=== PATIENT | female | born 1995 | race Caucasian/White ===

== ENCOUNTER → 2018-11-05 13:24 | Outpatient (CLI) | payer MEDICAID, SELFPAY ==
[2018-11-05 16:32] LABS: Chlamydia Trachomatis by PCR Negative (Negative); Neisserai gonorrhoeae by PCR Negative (Negative); Probe Check PASS; Sample Adequacy Control PASS; Specimen Processing Control PASS
[2018-11-07 14:40] LABS: HPV Reflexed? NOT INDICATED
== END ==
PROVIDERS: Visit Provider Obstetrics & Gynecology
DX: Z32.01 Encounter for pregnancy test, result positive (principal); Z12.4 Encounter for screening for malignant neoplasm of cervix; Z11.3 Encounter for screening for infections with a predominantly sexual mode of transmission
CPT/HCPCS: 87491; 87591; 87624; 88175; G0145

== ENCOUNTER → 2018-12-04 11:31 | Outpatient (CLI) | payer MEDICAID, SELFPAY ==
[2015-01-27 10:56] VITALS: BMI 27.6
[2018-12-04 13:39] LABS: Color, Urine Yellow (Yellow); Glucose, Dipstick Normal (Normal); Ketone-Dipstick Negative (Negative); Leukocyte Esterase-Dipstick 25 /ul (Negative); Nitrite-Dipstick Negative (Negative); Occult Blood-Urine Negative /ul (Negative); Protein-Dipstick Negative (Negative); Specific Gravity, Urine 1.025 (1.002-1.030); Urine Bilirubin Dipstick Negative (Negative); Urine Clarity Sl. Cloudy (Clear); Urine Urobilinogen Normal (Normal)
[2018-12-04 13:49] LABS: COTININE Drug Screen Positive (<200 ng/mL)
[2018-12-04 13:59] LABS: Absolute Neutrophil Count 6.2 X10^3/uL (2.0-7.7); Basophil# 0.01 X10^3/uL; Basophil% 0.1 % (0-1); Eosinophil# 0.11 X10^3/uL; Eosinophils% 1.2 % (0-5); Hematocrit 36.9 % (37-47); Hemoglobin 12.4 g/dl (12.0-15.0); Lymphocyte % 21.6 % (19-41); Mean Corp Hgb Conc 33.6 g/gl (32-36); Mean Corpuscular Hgb 29.3 pg (27.0-32.0); Mean Corpuscular Volume 87.2 fL (81-99); Mean Platelet Vol. 10.4 fl (6.2-12.0); Monocyte# 0.51 X10^3/uL; Monocyte% 5.8 % (0-10); Neutrophil # 6.24 X10^3/uL (2.7-7.7); Neutrophil % 70.8 % (47-70); Platelet Count 282 K/mm3 (150-450); RBC Distribution Width CV 14.4 % (11.6-14.6); RBC Distribution Width SD 44.6 fl (35.1-43.9); Red Blood Count 4.23 M/mm3 (4.2-5.4); White Blood Count 8.8 K/mm3 (4.4-11.0)
[2018-12-04 14:01] LABS: Thyroid Stim Hormone (TSH) 0.78 uIU/mL (0.358-3.74)
[2018-12-04 14:02] LABS: Amphetamine Urine VISTA NEGATIVE (<1000 ng/mL); Barbiturate Urine VISTA NEGATIVE (< 200 ng/mL); Benzodiazepine Urine VISTA NEGATIVE (< 200 ng/mL); Cocaine Urine VISTA NEGATIVE (< 300 ng/mL); Ecstacy Urine VISTA NEGATIVE (< 500 ng/mL); Methadone Urine VISTA NEGATIVE (< 300 ng/mL); PCP Urine VISTA NEGATIVE (< 25 ng/mL); THC Urine VISTA NEGATIVE (< 50 ng/mL); Vista UDS pH Range 6
[2018-12-04 14:07] LABS: POSITIVE COUNT NO; POSITIVE DIFFERENTIAL NO; POSITIVE MORPHOLOGY NO
[2018-12-04 14:48] LABS: HIV - WCH Non-Reactive (Nonreactive); Rubella IgG 67.2 IU/mL; Vitamin D,25 Hydroxy 10.2 ng/mL (29.95-100.01)
[2018-12-05 11:27] LABS: HEPATITIS B SURFACE AG Negative (Negative); Hep C Antibodies <0.1 s/co ratio (0.0-0.9)
[2018-12-07 04:55] LABS: Prenatal RPR NONREACTIVE (NONREACTIVE)
== END ==
PROVIDERS: Visit Provider Obstetrics & Gynecology
DX: Z34.82 Encounter for supervision of other normal pregnancy, second trimester (principal)
CPT/HCPCS: 36415; 80307; 81002; 82306; 84443; 85025; 86703; 86762; 86803; 87340

== ENCOUNTER → 2019-03-11 16:04 | Outpatient (CLI) | payer MEDICAID, SELFPAY ==
[2015-01-27 10:56] VITALS: BMI 27.6
[2019-03-11 18:02] LABS: Hematocrit 33.7 % (37-47); Hemoglobin 11.3 g/dl (12.0-15.0); Mean Corp Hgb Conc 33.5 g/gl (32-36); Mean Corpuscular Hgb 29.1 pg (27.0-32.0); Mean Corpuscular Volume 86.9 fL (81-99); Mean Platelet Vol. 11.2 fl (6.2-12.0); Platelet Count 252 K/mm3 (150-450); RBC Distribution Width CV 13.8 % (11.6-14.6); RBC Distribution Width SD 42.6 fl (35.1-43.9); Red Blood Count 3.88 M/mm3 (4.2-5.4); White Blood Count 7.9 K/mm3 (4.4-11.0)
[2019-03-11 18:06] LABS: Glucose Challenge Gest 1H 50g 129 mg/dL (70-140)
[2019-03-11 18:28] LABS: Scan Indicated on CBC? Y/N NO
== END ==
PROVIDERS: Visit Provider Obstetrics & Gynecology
DX: Z34.83 Encounter for supervision of other normal pregnancy, third trimester (principal)
CPT/HCPCS: 36415; 82950; 85027

== ENCOUNTER → 2019-05-06 17:22 | Outpatient (CLI) | payer MEDICAID, SELFPAY ==
[2015-01-27 10:56] VITALS: BMI 27.6
== END ==
PROVIDERS: Referring Provider Obstetrics & Gynecology; Visit Provider Obstetrics & Gynecology
DX: Z36.85 Encounter for antenatal screening for Streptococcus B (principal)
CPT/HCPCS: 87081

== ENCOUNTER 2019-05-24 09:40 | Outpatient (CLI) | payer MEDICAID, SELFPAY ==
[2015-01-27 10:56] VITALS: BMI 27.6
[2019-05-24 10:24] VITALS: BMI 30.2
[2019-05-24 10:52] LABS: ROM Internal Control Test YES-OK TO RESULT pt. (Internal QC); ROM Patient Test Negative (Negative); Record Kit Lot#, ROM+ J8255
--- NOTE | 2019-06-03 07:57 | OB.TRI.NOTE ---
History of Present Illness Date of Service: 05/24/19 Reason For Visit: R/O RUPTURE Date of Service: 05/24/19 Final DANIELE: 05/27/19 Final DANIELE Source: US <20 weeks Gestational age: 41 Weeks and 0 Days History of Present Illness: This is a late entry for 05/24/2019 at 1150 Spoke with Sofya CASTELLON in office re: patient in L&D, c/o LOF; per Susie RN in in L&D, ROM-plus negative, cervix 3/60/-3; pt is not feeling contractions NST reactive with FHR baseline 135 to 140 bpm with moderate variability and accels, no decels; uterine contraction pattern irritable with occasional contractions. AVSS Allergies No Known Drug Allergies Allergy (Verified 05/27/19 11:42) Unknown NO KNOWN ALLERGIES Laboratory Studies: Laboratory Tests 05/24/19 Range/Units 10:15 Vag Amniotic Fld Detect Negative (Negative) NST - FHR Rate Baby A Baseline: 135 Variability:: Moderate Accelerations:: 15 x 15 Decelerations:: None NST Reactive:: Yes FHR Category:: Category I Impression/Plan Impression: 23 yo IUP at 39w4d gestation Negative for SROM Cat 1 FHTs Not in labor Plan: DC home with labor precautions, FM counts, increase fluids
== END 2019-05-24 11:40 | disposition home or self-care (01) ==
LOC: WPOUT 10:22 → WP 10:22
PROVIDERS: Referring Provider Advanced Practice Midwife; Visit Provider Advanced Practice Midwife
DX: O26.893 Other specified pregnancy related conditions, third trimester (principal); Z3A.39 39 weeks gestation of pregnancy; R69 Illness, unspecified
CPT/HCPCS: 59025; 59050; 84112; 99218; G0378

== ENCOUNTER 2019-05-27 10:50 | Inpatient (IN) | payer MEDICAID, SELFPAY ==
[2019-05-27] MEDS: Lactated Ringers 1,000 ML 50 ML IV (11:40)
[2019-05-27 11:41] VITALS: BMI 30.2
[2019-05-27 12:18] LABS: Absolute Lymphocyte Count 1.59 X10^3/uL (0.83-4.51); Basophil# 0.03 X10^3/uL; Basophil% 0.3 % (0-1); Eosinophil# 0.04 X10^3/uL; Eosinophils% 0.4 % (0-5); Hematocrit 35.8 % (37-47); Hemoglobin 11.9 g/dL (12.0-15.0); Lymphocyte # 1.59 X10^3/ul (4.0); Lymphocyte % 17.4 % (19-41); Mean Corp Hgb Conc 33.2 g/dL (32-36); Mean Corpuscular Volume 87.1 fL (81-99); Mean Platelet Vol. 11.1 fl (6.2-12.0); Monocyte# 0.47 X10^3/uL; Monocyte% 5.1 % (0-10); NRBC Flagged by Analyzer 0 % (0-5); Neutrophil # 6.97 X10^3/uL (2.7-7.7); Neutrophil % 76.3 % (47-70); Platelet Count 250 K/mm3 (150-450); RBC Distribution Width CV 14.7 % (11.6-14.6); RBC Distribution Width SD 47.1 fl (35.1-43.9); Red Blood Count 4.11 M/mm3 (4.2-5.4); White Blood Count 9.2 K/mm3 (4.4-11.0)
--- NOTE | 2019-05-27 12:55 | PCM.HP.BLA ---
History and Physical Date of Admission: 05[place]27/19 [facility] [place] PHYSICAL (05/27/2019) Name: CATE LUIS History of This : This is a 23-year-old 4 para 3 who presents in active labor at 40 weeks gestation. care has been uneventful except the patient is a smoker and has been advised to quit. OB Physician: YVONNE Highmore's Physician: Kajal Pickering ...................................................................... : 1995 Age: 23 Address: [address] [place] [address] Phone: H) [phone] Insurance Carrier: [facility] [id number] Emergency Contact: CANDICE FERNANDEZ [phone] ...................................................................... Final DANIELE: 05/27/19 By Ultrasound: 11 weeks 1 day PARITY: (G-Total Pregnancies P-Fullterm,Premature,Induced AB,Spont AB, Ectopics, Multiple,Living) DANIELE CONFIRMATION: By LMP: 08/09/18 By First Ultrasound Exam: 05/27/19 Final DANIELE: 05/27/19 BLOOD TYPE: Scanned 37 AFP: 1 HR P GBS: Group B Beta Streptococcus is not isolated. Original Ordering Provider: REJI STOVER Original Ordering Provider: Eduarda Khan MEET Culture Group B Beta Streptococcus is not isolated. Rublla titer (>10 immune)-- Hepatatis B micheal AG-- CULTURES:-- OB PROBLEM LIST: Smoker since age 10. Now 1/2 PPD. Declines AFP and CF. Needs to apply for [facility]! EDC by 11 wk sono. Unsure LMP EDC 05/27/19 STERILIZATION REQUEST R,B,A and permanence discussed . Fed consent for BTO signed on 05/06/19 Vit D 10 - rpt at 28wga ALLERGIES: NKDA MEDICATIONS: Gummy 400 mcg-35 mg-25 mg-5 mg chewable tablet One pill by mouth once a day Vitamin D3 4,000 unit capsule One pill by mouth once a day SOCIAL HISTORY: Smoking - Advised to quit and smoker x 13 y. Currently smokes7-8 cigs daily. Alcohol Use - RARELY not while Diet - no special diet, caffeine < 2 drinks per day and Water intake tries for a few bottles a day. Lifestyle - moderate stress lifestyle Exercise - Active with kids. Enc to walk 20 min daily. Employer - homemaker Job Description - Illicit Drug Use - denies use of street drugs Sexual Activity - [employer]IVE [employer] Residence - rent to own Spouse-Sig Other Name - TOPHERPatrizia Fernandez Spouse-Sig Other Occupation - screedman/laborer, factory Spouse-Sig Other Phone No - [phone] Children Name(s) - Noe(EB), Ana(EB), albert(SHM) PRIOR DELIVERY HISTORY DEL DATE GEST LAB WT LB WT OZ TYPE ANES LABOR TX Feb 09 40 7 6 11 Vag Epidural No Jun 07 40 48 7 4 Vag Epidural No January 08 40 7 6 6 Vag Epidural No ANTEPARTUM FLOW CHART VISIT GE RTC FU F F CT U U DATE WK MD WKS HT PN HR M SS BP ED WT CT GL D EF ST __ ____ ___ __ __ ___ __ __ __ ___ __ __ __ ___ __ 24 Apr ELB 1 39 V + + 124/64 sl 185 - - 2 50 hi 18 Apr ELB 1 38 V + + 132/78 0 186 tr - cl Apr ELB 1 36 V + + 132/70 sl 189 - - cl Mar SHM 2 32 V + + 124/58 sl 186 tr - Mar SHM 1 31 ? + + 120/60 0 181 Mar 25 ELB 2 29 - + + 110/62 sl 184 Feb 19 JMW 3 25 + + 124/66 0 184 tr - January 14 ELB 4 - - U+ + 130/70 0 188 - - Dec 10 ELB 4 - - + ? 134/70 0 188 tr - ANTEPARTUM NOTE(S): May 21 2019: May 15 2019: FM, SROM, and labor reviewed May 06 2019: GBS Today,LARC Form signed,Good FM Apr 17 2019: follow up u/s today Apr 09 2019: concerned about weight loss Mar 11 2019: GCT today, unable to leave urine Feb 11 2019: glucola given Jan 10 2019: feeling well. Complains of rash on left breast. Dec 04 2018: NOB today COMPREHENSIVE ANTEPARTUM NOTE(S): May 21 2019: No Sx labor. Good FM. Sent to [facility] to pre-register after this visit. She would like to discuss having membranes stripped. kbm May 10 2019: H taken to OB. tkg May 09 2019: GBS negative. EB May 08 2019: GBS negative. EB Apr 17 2019: US EFW 2467g, BALTAZAR 9cm, CEPHALIC. Discussed vacuum indications. Apr 09 2019: US for limited maternal weight at next visit. Dietary recall reviewed - caloric intake appropriate. PTL, ROM, FM precautions discussed. Reviewed importance of compliance with visits. Plans no epidural in labor. Jan 10 2019: Rash between breasts. Small soft tissue swelling under red spot on breast medial aspect of the L breast. Recommend topical abx cream and observe not at all clinically suspicious... EB Dec 05 2018: A pos, Rub imm Dec 04 2018: Pap WNL. GC and chlamydia cultures NEG last visit. Had BV and tx'd with Metrogel for 5 d after dx made. Sx of BV have resolved. Doing well. NOB appt today. Has NOT had her pkg labs yet and needs these. EB Dec 04 2018: Cate is here for NOB nurse visit with DANIELE 9-- at 15 weeks 1 day planning a vag del without epidural this time, using [facility] Mitchell in [place] for post disch ped care and to breastfeed. Cate is a G 4 P 3 with children 7y, almost 5 and almost 4 years old at home. Her son is in school and the two girls go to [employer]. They are NOT on WIC, info given and she was highly enc to apply as she does qualify. 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 They are happy about the pg. Cate has NKA to drugs, food, latex or the environment. Her diet sounds fairly balanced. The importance of protein in her diet discussed. She drinks an occ cup of tea and tries to drink a few bottles of water daily. Enc to at least double that amount when the weather gets warmer. Cate rarely drinks alcohol and not in pg. She denies street drug use, past or present. She has smoked for 13 years currently 7-8 cigarettes daily. ATQ. Risks of smoking to her baby and placenta detailed. She does no regular exercise although she is active with her kids and home. Enc to walk 20 min daily. Genetics Screening form completed noting no family issues. Warning signs in pg reviewed along with otc meds ok to take, how to reach the office after hours, wearing seatbelt low on her abdomen, lifting restriction of about 25# with understanding voiced. She does not have a copy of What to Expect so one was provided for her. US done previously. Routine labs drawn today. She's had chickenpox and is aware of litter box issues. [facility] Sibling Class suggested. Enc to call w any concerns. Visit took approx 40 min. Ryann CASTELLON. NEW Nov 05 2018: Cate is here today for missed menses appointment. Patient is a . Positive upt in office today. Patient states that lmp is 08/09/2018 making her 12-13wks with Daniele of 05/16/2019. Patient states that prior to menses were irregular and variable. Patient denies any bleeding since lmp. She states that she has mild nausea but is tolerable. Patient states that she has not yet started PNV as she keeps forgetting to picket labor union advised she really needs to get started on those. Patient has h/o normal pap's with most recent pap in 2013. Pap and Gc/Ct cultures due at today's visit. Patient states that she has some sharp pains noted in rt groin when coughing, sneezing or with certain movements. Reviewed round ligament pain with patient. Educational materials provided and reviewed with patient. scottb REVIEW OF SYSTEMS: GENERAL - Denies fever, or chills SKIN - Denies rash, new skin lesions, or change in moles EYES - Denies blurred vision, or change in visual acuity EARS - Denies ear pain, or difficulty hearing NOSE - Denies nasal congestion, discharge, or bleeding MOUTH - Denies sore throat, or difficulty swallowing NECK - Denies pain or swelling RESPIRATORY - Denies shortness of breath, cough, wheezing CARDIOVASCULAR - Denies palpitations, chest pain, orthopnea, PND, peripheral edema, syncope or claudication GASTROINTESTINAL - Denies nausea, vomiting, diarrhea, constipation, Denies abdominal pain, melena and or bright red blood GENITOURINARY - Denies dysuria, frequency of urination, urgency, or hesitancy MUSCULOSKELETAL - Denies joint or muscle pain, or back pain NEUROLOGICAL - Denies localized numbness, weakness, or tingling PSYCHIATRIC - Denies depression, anxiety, substance abuse or suicide attempts ENDOCRINE - Denies heat or cold intolerance, weight loss or gain, increasing thirst HEMATO-IMMUNOLOGIC - Denies easy bruising, bleeding, oral ulcerations or recurrent infections GENETICS SCREENING: Age 35+ years: No Thalassemia: No Neural Tube Defect: No Down Syndrome: No LISA-SACHS: No Sickle Cell Disease: No Hemophilia: No Musc. Dystrophy: No Cystic Fibrosis: No-declines screening [place] Chorea: No Mental Retardation: No Fragile X: No Other genetic: No Other defects: No SABs/still births: No Drugs since LMP: No INFECTION HISTORY: High risk AIDS: No High risk Hepatitis: No Exposed to TB: No Exposed to Herpes: No Rash/viral illness since LMP: No History of STD: No MENSTRUAL HISTORY: *Menses Amount/Duration: 5 daysMenses Regularity: irregularFrequency: variableMenarche (Age Onset): 11* PAST SUMMARY: PARITY: 1. Total Pregnancies............ 4 2. Full Term Pregnancies........ 3 3. Premature.................... 0 4. Abortions - Induced.......... 0 5. Abortions - Spontaneous...... 0 6. Ectopics..................... 0 7. Multiple Births.............. 0 8. Living Children.............. 3 PAST #1: Date of :.................. 06/25/11 Gestation Weeks:................ 40 Length of labor(hours):......... 48 Sex:............................ M Weight-lbs:............... 7 Weight-oz:................ 4 Type of Delivery:............... Vag Type of Anesthesia:............. Epidural Place of Delivery:.............. [facility] Treatment of Labor?:.... No Comment: PAST #2: Date of :.................. 01/25/14 Gestation Weeks:................ 40 Length of labor(hours):......... 7 Sex:............................ F Weight-lbs:............... 6 Weight-oz:................ 6 Type of Delivery:............... Vag Type of Anesthesia:............. Epidural Place of Delivery:.............. [facility] Treatment of Labor?:.... No Comment: NONE PAST #3: Date of :.................. 01/27/15 Gestation Weeks:................ 40 Length of labor(hours):......... 7 Sex:............................ F Weight-lbs:............... 6 Weight-oz:................ 11 Type of Delivery:............... Vag Type of Anesthesia:............. Epidural Place of Delivery:.............. [place] Treatment of Labor?:.... No Comment: NO PHYSICAL EXAMINATION General Appearence: 23 yo female in no acute distress Vital Signs: AF, VSS Heart: RRR without rubs or gallops Lungs: CTA x 2 Breasts: deferred Abdomen: gravid Pelvis: Cervix: 5 To 6 cm 90% effaced, bag of water intact Presentation: cephalic Station: -2 Fetus: Size: AGA Movement: present Heart: present Labs for : CATE LUIS since 08/30/2018 ORDER DATEIN DESCRIPTION VALUE UNITS RANGE A+ COMMENT CBC W/DIFF, AUTOMATED 05/27/19 NOTE Original Ordering Provider: Ab Glass WBC 9.2 K/mm3 4.4-11.0 RBC 4.11 M/mm3 4.2-5.4 L HGB 11.9 g/dL 12.0-15.0 L HCT 35.8 % 37-47 L MCV 87.1 fL 81-99 MCH 29.0 pg 27.0-32.0 MCHC 33.2 g/dL 32-36 RDW CV 14.7 % 11.6-14.6 H RDW SD 47.1 fl 35.1-43.9 H PLT 250 K/mm3 150-450 MPV 11.1 fl 6.2-12.0 NEUT% 76.3 % 47-70 H LY% 17.4 % 19-41 L MONO% 5.1 % 0-10 EO% 0.4 % 0-5 BASO% 0.3 % 0-1 IM GRAN % 0.500 % 0.0-0.9 IG% - Immature Granulocytes (promyelocytes, myelocytes and metamyelocytes) > 1% indicates that a LEFT SHIFT is Present. ABSOLUTE NEUT 7.0 X10 3/uL 2.0-7.7 ABSOLUTE LYMPH 1.59 X10 3/uL 0.83-4.51 NRBC, FLAGGED 0 % 0-5 CULTURE, GROUP B STREPTOCOCCUS 05/06/19 NOTE Original Ordering Provider: Eduarda Khan MEET Culture Group B Beta Streptococcus is not isolated. Reviewed by EDUARDA Reviewed by EDUARDA CBC-COMPLETE BLOOD CNT NO DIFF 03/11/19 NOTE Original Ordering Provider: Eduarda Khan WBC 7.9 K/mm3 4.4-11.0 RBC 3.88 M/mm3 4.2-5.4 L HGB 11.3 g/dl 12.0-15.0 L HCT 33.7 % 37-47 L MCV 86.9 fL 81-99 MCH 29.1 pg 27.0-32.0 MCHC 33.5 g/gl 32-36 RDW CV 13.8 % 11.6-14.6 RDW SD 42.6 fl 35.1-43.9 PLT 252 K/mm3 150-450 MPV 11.2 fl 6.2-12.0 Reviewed by SAYRA GLUCOSE CHALLENGE GEST 1H 50G 03/11/19 NOTE Original Ordering Provider: Eduarda Khan GLU GEST 50G 1H 129 mg/dL 70-140 Reviewed by SAYRA RPR 12/04/18 NOTE Original Ordering Provider: Eduarda Khan RPR NONREACTIVE NONREACTIVE Reviewed by EDUARDA HEPATITIS C ANTIBODIES 12/04/18 NOTE Original Ordering Provider: Eduarda Khan HEP C AB <0.1 s/co ratio 0.0-0.9 Negative: < 0.8 Indeterminate: 0.8 - 0.9 Positive: > 0.9 The CDC recommends that a positive HCV antibody result be followed up with a HCV Nucleic Acid Amplification test ([id number]). Reviewed by SAYRA HEPATITIS B SURFACE AG 12/04/18 NOTE Original Ordering Provider: Eduarda Khan HB SURF AG Negative Negative Performed at: [address] [id number] Documentation Engineer: Jose Doll PhD, Phone: [phone] Reviewed by SAYRA HIV - [facility] 12/04/18 NOTE Original Ordering Provider: Eduarda Khan HIV - [facility] Non-Reactive Nonreactive Reviewed by SAYRA RUBELLA IGG 12/04/18 NOTE Original Ordering Provider: Eduarda Khan RUBELLA IGG 67.2 IU/mL Antibody results Interpretation of Immune Status < 5 IU/ml Presumed Non-immune 5 - < 10 IU/ml Equivocal > or = 10 IU/ml Presumed Immune Reviewed by SAYRA VITAMIN D,25 HYDROXY 12/04/18 NOTE Original Ordering Provider: Eduarda Khan VITAMIN D 25-OH 10.2 ng/mL 29.95-100.01 L Vitamin D 25(OH) Status Range Deficiency <20 ng/mL (50nmol/L) Insufficiency 20 - 30 ng/mL (50 - 75 nmol/L) Sufficiency 30 - 100 ng/mL (75 - 250 nmol/L) Toxicity >100 ng/mL (>250 nmol/L) Reviewed by SAYRA T AND S-NO CHARGE W/PNP 12/04/18 Reason for Type AND Screen/Red Cells: Surgery? N [facility]~[address] [place], [address]~ BLOOD TYPE GEL A POSITIVE N AB SCREEN GEL NEGATIVE N Reviewed by SAYRA CBC W/DIFF, AUTOMATED 12/04/18 NOTE Original Ordering Provider: Eduarda Khan WBC 8.8 K/mm3 4.4-11.0 RBC 4.23 M/mm3 4.2-5.4 HGB 12.4 g/dl 12.0-15.0 HCT 36.9 % 37-47 L MCV 87.2 fL 81-99 MCH 29.3 pg 27.0-32.0 MCHC 33.6 g/gl 32-36 RDW CV 14.4 % 11.6-14.6 RDW SD 44.6 fl 35.1-43.9 H PLT 282 K/mm3 150-450 MPV 10.4 fl 6.2-12.0 NEUT% 70.8 % 47-70 H LY% 21.6 % 19-41 MONO% 5.8 % 0-10 EO% 1.2 % 0-5 BASO% 0.1 % 0-1 IM GRAN % 0.500 % 0.0-0.9 IG% - Immature Granulocytes (promyelocytes, myelocytes and metamyelocytes) > 1% indicates that a LEFT SHIFT is Present. ABSOLUTE NEUT 6.2 X10 3/uL 2.0-7.7 ABSOLUTE LYMPH 1.90 X10 3/ul 0.83-4.51 Reviewed by SAYRA NICOTINE URINE DRUG SCREEN 12/04/18 NOTE Original Ordering Provider: Eduarda Khan TO BE CONFIRMED CONFIRMATORY TESTING FOR ALL POSITIVE URINE DRUG SCREEN RESULTS WILL ONLY BE SENT OUT UPON PHYSICIAN ORDER. The results of Urine Drug Screen methods provide only preliminary analytical test results. A more specific alternate chemical method must be used in order to obtain a confirmed analytical result. Gas chromatography/mass spectrometery (GC/MS) is the preferred confirmatory method. Clinical consideration and professional judgement should be applied to any drug of abuse test result, particularly when preliminary positive results are used. COT DRG SCREEN Positive <200 ng/mL H Cotinine is the first-stage metabolite of Nicotine. Reviewed by [facility] URINE DRUG SCREEN (VISTA) 12/04/18 NOTE Original Ordering Provider: Eduarda Khan TO BE CONFIRMED CONFIRMATORY TESTING FOR ALL POSITIVE URINE DRUG SCREEN RESULTS WILL ONLY BE SENT OUT UPON PHYSICIAN ORDER. VISTA Urine Drug Screen methods provide only preliminary analytical test results. A more specific alternate chemical method must be used in order to obtain a confirmed analytical result. Gas chromatography/mass spectrometery (GC/MS) is the preferred confirmatory method. Clinical consideration and professional judgement should be applied to any drug of abuse test result, particularly when preliminary positive results are used. URINE TCA TESTING MUST BE ORDERED SEPARATELY. USE TEST MNEMONIC: [facility] UDS PH 6 AMPHETAMINES NEGATIVE <1000 ng/mL BARBITIURATES NEGATIVE < 200 ng/mL BENZODIAZIPINE NEGATIVE < 200 ng/mL COCAINE NEGATIVE < 300 ng/mL ECSTACY NEGATIVE < 500 ng/mL METHADONE NEGATIVE < 300 ng/mL OPIATES NEGATIVE < 300 ng/mL PCP NEGATIVE < 25 ng/mL THC NEGATIVE < 50 ng/mL Reviewed by SAYRA THYROID STIM HORMONE (TSH) 12/04/18 NOTE Original Ordering Provider: Eduarda Khan TSH 0.78 uIU/mL 0.358-3.74 Reviewed by SAYRA URINALYSIS, ROUTINE (DIPSTICK) 12/04/18 NOTE Original Ordering Provider: Eduarda Khan COLOR Yellow Yellow CLARITY Sl. Cloudy Clear GLUCOSE, UR Normal mg/dl Normal BILIRUBIN URINE Negative mg/dL Negative KETONE UR Negative mg/dl Negative SP.GR. DIPSTX 1.025 1.002-1.030 PH UR 6.0 5.0 - 8.0 PROT DIPSTX Negative mg/dl Negative UROBILI Normal mg/dl Normal NITRITE UR Negative Negative OCCULT BLOOD-UR Negative /ul Negative LEUK ESTERASE 25 /ul Negative H Reviewed by SAYRA PATEL VAGINITIS (VG) 11/05/18 ATOPOBIUM VAGINAE High - 2 Score A BVAB 2 High - 2 Score A MEGASPHAERA 1 High - 2 Score A Calculate total score by adding the 3 individual bacterial vaginosis (BV) marker scores together. Total score is interpreted as follows: Total score 0-1: Indicates the absence of BV. Total score 2: Indeterminate for BV. Additional clinical data should be evaluated to establish a diagnosis. Total score 3-6: Indicates the presence of BV. . This test was developed and its performance characteristics determined by [facility]. It has not been cleared or approved by the Food and Drug Administration. The FDA has determined that such clearance or approval is not necessary. NAUN ALBICANS, JACQUELINE Negative Negative NAUN GLABRATA, JACQUELINE Negative Negative This test was developed and its performance characteristics determined by [facility]. It has not been cleared or approved by the Food and Drug Administration. The FDA has determined that such clearance or approval is not necessary. TRICH VAG BY JACQUELINE Negative Negative Reviewed by SAYRA PAP I-G W/RFX HRHPV-APTIMA 11/05/18 NOTE Original Ordering Provider: Sayra Villalobos DIAGN . NEGATIVE FOR INTRAEPITHELIAL LESION OR MALIGNANCY. ADEQ . Satisfactory for evaluation. No endocervical component is identified. PERFORM . Tavares Barragan [employer] (ASCP) TEST METHOD . This liquid based ThinPrep(R) pap test was screened with the use of an image guided system. COMM . . PAPSMR . The Pap smear is a screening test designed to aid in the detection of premalignant and malignant conditions of the uterine cervix. It is not a diagnostic procedure and should not be used as the sole means of detecting cervical cancer. Both false-positive and false-negative reports do occur. HPV RFLX . The HPV DNA reflex criteria were not met with this specimen result therefore, no HPV testing was performed. Performed at: [facility] [id number] Documentation Engineer: Alesia Chan MD, Phone: [phone] Reviewed by SAYRA CT/JANNET [facility] BY PCR 11/05/18 NOTE Original Ordering Provider: Sayra POWER [facility] PCR Negative Negative JANNET BY PCR Negative Negative Reviewed by SAYRA PROVIDER SIGNATURE ( REQUIRED) Impression /Plan: Intrauterine in active labor. Preparations in progress for delivery.
[2019-05-27] MEDS: Oxytocin 30 units/NS 500 ml 30 UNITS/500 ML IV.SOLN 334 UNITS IV (14:57)
--- NOTE | 2019-05-27 15:04 | DCINST_ITS ---
Discharge Diet: No Restrictions Discharge Activity: May Shower, May Take a Tub Bath May resume sexual activity in: 4-6 weeks Additional Activity Instructions:: Nothing in the vagina for 4-6 weeks. You may return to work/school in 6 weeks. Additional Instructions: If you experience any of the following, contact your healthcare provider. * Bleeding that soaks a pad every hour for 2 hours * Fever 100.4 or higher * Unrelieved abdominal pain * Problems urinating (including inability to urinate or burning while urinating). * Visual changes * Severe headache * Flu-like symptoms * Pain or redness in one of both of your breasts * Pain, warmth, tenderness or swelling in your legs, especially the calf area * Frequent nausea and vomiting * Symptoms of depression or anxiety If you experience any of the following, call 911 or go to the nearest Emergency Room. * Chest pain * Problems breathing * Seizure activity * Partial or complete paralysis of a body part, slurred speech, weakness or drooping of the face, or a sudden inability to walk or hold your balance Allergies/Adverse Reactions: Allergies No Known Drug Allergies Allergy (Verified 05/27/19 11:42) Unknown NO KNOWN ALLERGIES Medications to take at Discharge Vits [Prenatabs FA] 1 tab PO DAILY 05/24/19 Please Follow Up With: Eduarda Khan MD - [phone] When: Call to make an appointment with your doctor in 6 weeks. Primary Care Physician: Care Physician,No Primary [Primary Care Provider] - Test Results: Test results from this visit will be discussed in further detail at your follow- up appointment, if applicable. Proposed Discharge Date: 05/29/19
--- NOTE | 2019-05-27 15:04 | PCM.DCVAG ---
Discharge Diet: No Restrictions Discharge Activity: May Shower, May Take a Tub Bath May resume sexual activity in: 4-6 weeks Additional Activity Instructions:: Nothing in the vagina for 4-6 weeks. You may return to work/school in 6 weeks. Additional Instructions: If you experience any of the following, contact your healthcare provider. Bleeding that soaks a pad every hour for 2 hours Fever 100.4 or higher Unrelieved abdominal pain Problems urinating (including inability to urinate or burning while urinating). Visual changes Severe headache Flu-like symptoms Pain or redness in one of both of your breasts Pain, warmth, tenderness or swelling in your legs, especially the calf area Frequent nausea and vomiting Symptoms of depression or anxiety If you experience any of the following, call 911 or go to the nearest Emergency Room. Chest pain Problems breathing Seizure activity Partial or complete paralysis of a body part, slurred speech, weakness or drooping of the face, or a sudden inability to walk or hold your balance Allergies/Adverse Reactions: Allergies No Known Drug Allergies Allergy (Verified 05/27/19 11:42) Unknown NO KNOWN ALLERGIES Medications to take at Discharge Vits [Prenatabs FA] 1 tab PO DAILY 05/24/19 Please Follow Up With: Eduarda Khan MD - [phone] When: Call to make an appointment with your doctor in 6 weeks. Primary Care Physician: Care Physician,No Primary [Primary Care Provider] - Test Results: Test results from this visit will be discussed in further detail at your follow-up appointment, if applicable. Proposed Discharge Date: 05/29/19
--- NOTE | 2019-05-27 15:06 | PCM.OPRPT ---
Vaginal Delivery Maternal Presentation: Active Labor Amniotic Membrane Rupture Type: Spontaneous Amniotic Fluid Description: Clear Final DANIELE: 05/27/19 Final DANIELE Source: US <20 weeks Gestational age: 40 Weeks and 0 Days Date of Procedure: 05/27/19 Pre-Operative Diagnosis: 40 wk labor Post-Operative Diagnosis: same Surgery/ Procedure Performed: Spontaneous Vaginal Delivery Type of Anesthesia: None Description of Procedure: of a godinez viable female over intact perineum, onto intact bed. Head delivered JULIANA Nuchal and body cord noted . Shoulders delivered immediately after VTX with maternal forceful expulsive effort. Cord reduced after delivery. Baby Ap 8/9. to maternal abdomen for warming, drying, stim. Delayed cord clamping for approx 30 sec Cord clamped times two and cut. PP exam: no lacerations Placenta delivered by spont expulsion. 3V normal appearing and intact with trailing membranes EBL 300cc Pt and tolerated delivery well. To recovery, stable condition Ray Gab counts correct times two Presentation: Vertex, JULIANA Placental Delivery Description: Spontaneous Placenta Disposition: [facility] Cord Vessel Description: 3 Vessels Cord Entanglement: None, Around neck x 2, loose - around body. Reduced after delivery Estimated Blood Loss: 300 A gender: Female (1 minute): 8 (5 minute): 9 Episiotomy Description: None Laceration: None Medications given after delivery: IV Pitocin Complications: None
--- NOTE | 2019-05-27 16:15 | NURSING ---
Fundal exam performed. Pt fundus firm and 1 below umbilicus. When completing fundal massage clots began to expel. Continued fundal massage. Total of [address] Khan called and updated on bleeding. Pt also having BP in 140's/80's. Per Dr. Khan okay to give Methergine x1 and per Dr. Khan give extra bag of Pitocin to total 2 bags of Pitocin post delivery.
[2019-05-27] MEDS: Methylergonovine 0.2 MG/ML Ampul IM (16:22)
[2019-05-27] MEDS: Oxytocin 30 units/NS 500 ml 30 UNITS/500 ML IV.SOLN 167 UNITS IV (17:37)
[2019-05-27 21:01] VITALS: BP 145/93; PULSE 61; RESP 18; TEMP 36.8
[2019-05-28 00:30] VITALS: BP 118/68; PULSE 84; RESP 18; TEMP 36.7
[2019-05-28] MEDS: Ibuprofen 600 MG Tablet PO (04:35)
[2019-05-28 04:50] VITALS: BP 120/61; PULSE 65; RESP 18; TEMP 36.6
[2019-05-28 06:27] LABS: Hematocrit 32.1 % (37-47); Hemoglobin 10.7 g/dL (12.0-15.0); Mean Corp Hgb Conc 33.3 g/dL (32-36); Mean Corpuscular Hgb 29.1 pg (27.0-32.0); Mean Corpuscular Volume 87.2 fL (81-99); Mean Platelet Vol. 11.1 fl (6.2-12.0); Platelet Count 210 K/mm3 (150-450); RBC Distribution Width CV 14.7 % (11.6-14.6); Red Blood Count 3.68 M/mm3 (4.2-5.4); White Blood Count 10.5 K/mm3 (4.4-11.0)
[2019-05-28 08:05] VITALS: BP 122/70; PULSE 70; RESP 16; TEMP 36.9
--- NOTE | 2019-05-28 08:22 | PN.OBGYN_ITS ---
Subjective: PPD#1 Doing well. No concerns, some cramping. 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 Would like to go home today. Breast feeding. - Physical Exam General: Alert, Oriented x3, Cooperative, No apparent distress HEENT: Atraumatic, EOMI Neck: Supple Abdomen: Soft - Fundus firm NT at umbilicus to 1 cm above. Neurological: Cranial nerves II-XII grossly intact Psych/Mental Status: Flat Affect - per pt usual affect. Quiet Vital Signs Temp Pulse Resp BP 97.9 F 65 18 120/61 05/28/19 04:50 05/28/19 04:50 05/28/19 04:50 05/28/19 04:50 Weight: 85 kg Body Mass Index (BMI) 30.2 Intake and Output for Last 24 Hours 05/26/19 05/27/19 05/28/19 23:59 23:59 23:59 Intake Total 1593.34 / 1593.34 Output Total 550 / 550 Balance 1043.34 / 1043.34 Laboratory Tests Past 24 Hrs 05/27/19 05/27/19 05/28/19 11:40 11:40 06:15 WBC 9.2 10.5 RBC 4.11 L 3.68 L Hgb 11.9 L 10.7 L Hct 35.8 L 32.1 L MCV 87.1 87.2 MCH 29.0 29.1 MCHC 33.2 33.3 RDW Std Deviation 47.1 H 47.0 H RDW Coeff of Angeline 14.7 H 14.7 H Plt Count 250 210 MPV 11.1 11.1 Immature Gran % (Auto) 0.500 Neut % (Auto) 76.3 H Lymph % (Auto) 17.4 L Towns % (Auto) 5.1 Eos % (Auto) 0.4 Baso % (Auto) 0.3 Absolute Neuts (auto) 7.0 Absolute Lymphs (auto) 1.59 Nucleated RBC % 0 Blood Type A POSITIVE Antibody Screen NEGATIVE Medical Necessity - Tobacco Use Smoking Status: Current every day smoker Assessment/Plan PPD#1 Stable . Hgb stable. D/C home today if baby is released. RTO in 6 wk for pp check, prn sooner.
[2019-05-28] MEDS: Acetaminophen 500 MG Tablet 1000 MG PO (08:31)
[2019-05-28] MEDS: Senna/Docusate Sodium 1 Tablet PO (08:32)
[2019-05-28 12:40] VITALS: BP 107/68; PULSE 78; RESP 16; TEMP 37
[2019-05-28 15:17] VITALS: BP 128/82; PULSE 76; RESP 16; TEMP 36.6
== END 2019-05-28 16:15 | disposition home or self-care (01) | DRG 560 ==
PROVIDERS: Obstetrics & Gynecology; Admitting Provider Obstetrics & Gynecology; Referring Provider Obstetrics & Gynecology; Visit Provider Obstetrics & Gynecology
DX: O69.81X0 Labor and delivery complicated by cord around neck, without compression, not applicable or unspecified (principal); O99.334 Smoking (tobacco) complicating childbirth; F17.210 Nicotine dependence, cigarettes, uncomplicated; Z3A.40 40 weeks gestation of pregnancy; Z37.0 Single live birth
CPT/HCPCS: 59025; 59050; 84112; 85025; 85027; 86850; 86900; 86901; 99218; J7120; G0378

== ENCOUNTER 2020-11-20 07:24 | Day surgery (SDC) | payer MEDICAID, SELFPAY ==
[2020-10-30 09:54] VITALS: BMI 33.2
[2020-11-20] VITALS (7 sets, daily range): BP systolic 114–130; BP diastolic 70–90; PULSE 65–89; RESP 14–16; TEMP 36.1–37.2; O2SAT 91–99; BMI 34.3
[2020-11-20 08:03] LABS: Internal QC Validated? YES +Cl - CLEAR BKGD; Pregnancy, Urine Negative Negative
[2020-11-20] MEDS: Lactated Ringers 1,000 ML 100 ML IV ×2 (08:13→10:48)
--- NOTE | 2020-11-20 08:32 | HP_ITS ---
Intake Vital Signs 10/30/20 Height 5 ft 5.6 in 10/30/20 Weight: 203 lb 8 oz 10/30/20 BMI 33.2 10/30/20 BP 111/73 10/30/20 Blood Pressure Location Rt brachial 10/30/20 Position Sitting 10/30/20 Respiration 18 10/30/20 Pulse 82 10/30/20 Pulse Source Monitor 10/30/20 Temp 97.8 F 10/30/20 Temp Source Temporal 10/30/20 Pulse Oximetry (%) 97 10/30/20 Oxygen Delivery Method room air Intake Visit Reasons: VENTRAL HERNIA Chief Complaint: ventral hernia Product Sales Engineer Required: No Accompanied by: Mother Is patient in pain?: No Allergies No Known Drug Allergies Allergy (Verified 10/30/20 09:55) Unknown Medications fluoxetine 20 mg capsule 20 mg PO DAILY cap 10/30/20 [History Confirmed 10/30/20] norethindrone (contraceptive) 0.35 mg tablet ea PO 10/30/20 [History Confirmed 10/30/20] PFSH Medical History (Updated 10/30/20 @ 09:52 by Valarie Han) Abdominal pain (Acute) Constipation (Acute) Depression with anxiety (Acute) Hemorrhoids (Acute) Ventral hernia (Acute) Surgical History (Updated 10/30/20 @ 09:53 by Valarie Han) History of tonsillectomy and adenoidectomy (Acute) Family History (Updated 10/30/20 @ 09:53 by Valarie Han) Grandfather Heart disease Hypertension Social History (Updated 10/30/20 @ 10:[address] Alejandra Arce MD) Smoking Status: Current every day smoker alcohol intake: never substance use type: does not use HPI HPI HPI: PEDRO LUIS, is a 25 F who presents to the office today for HPI HPI Surgical H&P: Yes HPI: PEDRO LUIS, is a 25 F who presents to the office today for ventral hernia. Patient states she has had it for about 9 years since her first child. Patient states she can notice a bulge and also reduce it. Patient states that it can become more painful with yelling which it was about a month ago. Patient denies any change in pain with movement. Currently patient denies any pain at the site. Patient is on movements. ROS General General: No weight change, appetite, fatigue, colon cancer, breast cancer or weakness HEENT HEENT: No difficulty swallowing, eye injury, eye surgery, swollen glands or hoarseness Endo Endocrine: No thyroid disease, diabetes mellitus, thyroid cancer, Hair loss, heat intolerance or cold intolerance Skin Skin: No rash or changing moles Breast Breast: No left breast lump, right breast lump, nipple discharge, breast pain, abnormal mammogram, abnormal US or breast enlargement Musc Musculoskeletal: No back problems, arthritis, rheumatoid arthritis, gout or joint pain Cardio Cardiovascular: No murmur, pacemaker, heart disease, atrial fibrillation, high blood pressure, heart attack, heart stent, palpitations, shortness of breat with exertion or chest pain Psych Psychiatric: Yes depression and anxiety; no hearing voices Resp Respiratory: No shortness of breath, No sleep apnea, No cough, No COPD, No asthma, No emphysema, No wheezing Gastro Gastrointestinal: Yes abdominal pain, No nausea or vomiting, No diarrhea, Yes constipation, No blood in stool, No acid reflux, Yes hemorrhoids, No ulcers, No gallbladder problem, No black,tarry stools Dariusz Hematologic: No blood thinners, No blood disorders, No bleeding, No anemia, No blood clots Neuro Neurologic: No system reviewed and no additional complaints, except as docu, No as per HPI, No abnormal walking, No abnormal hearing, No abnormal movements, No abnormal speech, No behavioral changes, No burning sensations, No confusion, No seizure-like activity, No unsteadiness, No dizziness, No localized weakness, No frequent falls, No headache(s), No lack of coordination, No loss of vision, No memory loss, No numbness, No other visual disturbances, No radiating pain, No restless legs, No sensory deficit, No fainting, No tingling, No tremor(s), No weakness, No other Exam Const General: cooperative, comfortable, no acute distress Chest Breast Palpation: No nipple discharge Resp Effort & Inspection: normal respiratory effort Cardio Rate: regular rate Heart Sounds: no murmurs GI Inspection: no incisions, obesity Palpation: soft, no guarding, hernia (ventral (about 4cm supraumb)) other (About 1 cm x 1 cm on bedside ultrasound unable to definitively feel a defect on exam), tender (Supraumbilical hernia) Extrem General: no clubbing, cyanosis or edema Psych Affect: normal affect Assessment & Plan Problems 1. Ventral hernia without obstruction or gangrene K43.9 Plan Plan to do ventral hernia repair. Patient does not want mesh used for just sutures does understand that she could have a slight increased risk of recurrence depending on size of hernia at surgery. Reviewed the procedure with the patient including the risks, including but not limited to infection, bleeding, injury to the small bowel, and recurrence. All questions were answered. Cautioned the patient that if she has N/V, ABD distention, increased umbilical pain or changes of the skin over the hernia she needs to go to the ER. Alejandra Arce M.D. Pager: [phone] [facility] [address] [place] [address], [facility], [address] [place] [address] Office: [phone] Plan Detail Follow Up We will schedule ventral hernia repair Coding Level of Care Code Off vis,new,level 3 Diagnoses Ventral hernia without obstruction or gangrene K43.9 COVID (Procedure Consent) Procedure Criteria Procedure Criteria: Yes Elective The surgeon/proceduralist and patient have discussed in detail the risk of exposure to and/or potential harm posed by the COVID-19 virus with having a surgery/procedure at this time versus the risk of? delaying the surgery/procedure. It is not possible to know either the risk of delaying the surgery or procedure or chance of getting an infection with perfect accuracy, but a joint decision was made between the patient and the surgeon/proceduralist ?to proceed at this time with the scheduled surgery/procedure as indicated on the consent form. I have re-examined the patient. There are no clinical changes since date of exam.
[2020-11-20] MEDS: Cefazolin 2 GM in 0.9% Normal Saline 100 ML IV (09:45)
--- NOTE | 2020-11-20 10:23 | OP.PCM_ITS ---
Report of Operation Date of Procedure: 11/20/20 Pre-Operative Diagnosis: Ventral hernia Post-Operative Diagnosis: Same Surgery/Procedure Performed:: Open ventral hernia repair datapower developer: Barby Celeste Type of Anesthesia:: General/Supplemental Anesthesiologist: Marlo Glass Special Medications: Ancef 2 g IV x1 Specimen's removed: None Estimated Blood Loss (mL): < 10 cc Fluids Replaced: 1000 cc Description of Procedure: Indications: 25-year-old female with ventral hernia which was causing symptoms. Patient elected for open ventral hernia repair with no mesh. Description: Patient was brought into the operating room placed prone on the operating table. Correct timeout was completed verifying correct patient, procedure, site, positioning and special equipment prior to beginning procedure. Patient was intubated. Abdomen was prepped and draped in usual sterile fashion. The ventral hernia was identified using ultrasound. 15 blade scalpel was used to make a midline incision overlying this area. This was deepened with electrocautery. The hernia was identified. [place] was used to grasp the fascia. The intra-abdominal fat was reduced. The fascia around the hernia defect was cleared. The hernia measured 1 cm x 0.7 cm. Using 0 Nurolon suture [id number] to close the defect. Wound was irrigated. Hemostasis was assured. Incision was closed with subdermal 3-0 Vicryl sutures and skin was closed with 4-0 Monocryl. Steri-Strips and OpSite placed. Patient was extubated. Patient tolerated procedure well sent to the postanesthesia care unit in stable condition. - Complications none
[2020-11-20] MEDS: Bupivacaine Mpf 0.5% 30 ML VIAL (10:30)
--- NOTE | 2020-11-20 10:30 | DCINST_ITS ---
Discharge Diet: Light diet - advance as tolerated Discharge Activity: May not drive while taking narcotic pain medications. May shower in (days): 1 - No soaking in baths or pools for about 4 weeks Lifting Restrictions: No lifting> 20 pounds x 2 weeks. Call your doctor if your incision/area has: Continuous Slow Oozing, Sudden Increased Bleeding, Increased Pain/ Swelling, Increased Redness, Foul Smelling Discharge, Swelling at the incision site Call your doctor if you observe: Fever of 101 or Higher Remove Dressing in (days):: 1 - Okay to remove OpSite tomorrow, Steri-Strips will stay on for 7 to 10 days if they do not follow-up in 10 days okay to remove Allergies/Adverse Reactions: Allergies No Known Drug Allergies Allergy (Verified 11/13/20 10:48) Unknown NO KNOWN ALLERGIES Medications to take at Discharge fluoxetine 20 mg capsule 20 mg PO DAILY cap 10/30/20 norethindrone (contraceptive) 0.35 mg tablet 1 tab PO DAILY 10/30/20 Oxycodone HCl/Acetaminophen [Percocet 5/325] 1 - 2 tablet PO Q6H PRN PRN 3 Days #10 tablet 11/20/20 The following prescriptions were given: Oxycodone HCl/Acetaminophen [Percocet 5/325] 1 - 2 tablet PO Q6H PRN PRN 3 Days #10 tablet PRN Reason: Pain Transmission Status: Received by [facility] Primary Care Physician: Kajal Pickering PA-C [Primary Care Provider] - Test Results: Test results from this visit will be discussed in further detail at your follow- up appointment, if applicable. Please Follow Up With: Alejandra Arce MD - After 5 PM and on the weekends call [phone] with any concerns When: Call the office for a follow-up appointment in 2 weeks. Proposed Discharge Date: 11/20/20
[2020-11-20] MEDS: Acetaminophen 325 MG Tablet PO (12:10)
[2020-11-20] MEDS: oxyCODONE 5 MG Tablet PO (12:10)
== END 2020-11-20 12:52 | disposition home or self-care (01) ==
LOC: SDC 07:24 → AC 07:24
PROVIDERS: Anesthesiology; PCP Family Medicine; Referring Provider Surgery; Visit Provider Surgery
PROC: (CPT 49560; principal; 2020-11-20 08:40)
DX: K43.9 Ventral hernia without obstruction or gangrene (principal); Z20.828 Contact with and (suspected) exposure to other viral communicable diseases; Z79.899 Other long term (current) drug therapy; F41.8 Other specified anxiety disorders; F17.210 Nicotine dependence, cigarettes, uncomplicated
CPT/HCPCS: 49560; 81025; 87426; C9803; J7120; J2405